=== PATIENT | female | born 1955 | race Caucasian/White ===

== ENCOUNTER 2022-02-02 13:32 | Observation (INO) ==
[2022-02-02] MEDS ORDERED: Ondansetron 4 MG/2 ML VIAL IVP PRN (15:05)
[2022-02-02] MEDS ORDERED: Acetaminophen 325 MG TABLET PO PRN (15:05)
[2022-02-02] MEDS ORDERED: Naloxone 0.4 MG/ML INJ IVP PRN (15:05)
[2022-02-02] MEDS ORDERED: Melatonin 3 MG TABLET PO PRN (15:05)
[2022-02-02] MEDS ORDERED: Perflutren Lipid Microsphere 1.3 ML in 0.9 % Sodium Chloride 8.7 ML IVP PRN ×2 (15:07→17:31)
[2022-02-02 15:31] LABS: Hematocrit 35.9 % (35.3-44.9); Hemoglobin 10.6 g/dL (11.5-15.4); Mean Corpuscular HGB Conc 29.5 g/dL (31.6-35.5); Mean Corpuscular Volume 71.2 fL (83.0-100.0); Mean Platelet Volume 10.1 fL (9.4-12.4); Platelet Count 370 K/mcL (140-400); Red Blood Count 5.04 M/mcL (3.82-4.97); Red Cell Distribution Width 17.6 % (11.5-14.5); White Blood Count 5.9 K/mcL (4.3-11.1)
[2022-02-02 15:45] LABS: BUN/Creatinine Ratio 27 (6-26); Blood Urea Nitrogen 16 mg/dL (8-23); Calcium 9.1 mg/dL (8.6-10.3); Carbon Dioxide 25 mEq/L (23-29); Chloride 101 mEq/L (98-107); Glucose 107 mg/dL (70-105); Osmolality,Calculated 286 (280-300); Potassium 3.5 mEq/L (3.5-5.1); Sodium 137 mEq/L (136-145); eGFR For African Americans > 60 (> 60); eGFR For Non-African Americans > 60 (> 60)
[2022-02-02] MEDS ORDERED: Ipratropium/Albuterol Neb 3 ML IH SCH (16:00)
[2022-02-02] MEDS ORDERED: *HR* HYDROcodone/Acet 5/325 mg TABLET PO PRN (16:07)
[2022-02-02] MEDS ORDERED: Ondansetron ODT 4 MG TAB.RAPDIS PO PRN (16:07)
[2022-02-02] MEDS ORDERED: Nitroglycerin 0.4 MG TAB.SUBL SL PRN (16:08)
[2022-02-02] MEDS ORDERED: Ipratropium/Albuterol Neb 3 ML IH PRN (16:19)
[2022-02-02] MEDS ORDERED: MethylPREDNISolone 40 MG/ML VIAL IVP SCH (18:00)
[2022-02-02] MEDS: Famotidine 20 MG TABLET PO SCH (22:33)
[2022-02-03] MEDS: MethylPREDNISolone 40 MG/ML VIAL IVP SCH ×3 (00:23→16:47)
[2022-02-03 05:05] LABS: Hemoglobin 9.9 g/dL (11.5-15.4); Mean Corpuscular Volume 70.1 fL (83.0-100.0); Mean Platelet Volume 10.7 fL (9.4-12.4); Platelet Count 359 K/mcL (140-400); Red Blood Count 4.71 M/mcL (3.82-4.97); Red Cell Distribution Width 17.2 % (11.5-14.5); White Blood Count 4.2 K/mcL (4.3-11.1)
[2022-02-03] MEDS: *HR* Enoxaparin 40 MG/0.4 ML SYRINGE SQ SCH (05:32)
[2022-02-03 09:07] LABS: Alanine Aminotransferase 193 Units/L (7-52); Albumin 3.4 g/dL (3.5-5.7); Albumin/Globulin Ratio 1.3 (1.1-2.2); Alkaline Phosphatase 124 Units/L (34-104); Aspartate Amino Transferase 136 Units/L (13-39); BUN/Creatinine Ratio 41 (6-26); Bilirubin,Total 1.1 mg/dL (0.3-1.0); Blood Urea Nitrogen 25 mg/dL (8-23); Calcium 8.5 mg/dL (8.6-10.3); Carbon Dioxide 25 mEq/L (23-29); Chloride 104 mEq/L (98-107); Chol/HDL Ratio 2.4 (0-4.9); Cholesterol 104 mg/dL (< 200); Globulin 2.7 g/dL (2.4-3.5); Glucose 109 mg/dL (70-105); HDL Cholesterol 43 mg/dL (40-59); LDL Cholesterol,Calculated 49 mg/dL (< 100); Magnesium 1.7 mg/dL (1.6-2.6); Osmolality,Calculated 293 (280-300); Potassium 3.4 mEq/L (3.5-5.1); Sodium 139 mEq/L (136-145); Total Protein 6.1 g/dL (6.4-8.9); Triglycerides 58 mg/dL (< 150); eGFR For African Americans > 60 (> 60); eGFR For Non-African Americans > 60 (> 60)
[2022-02-03] MEDS: Loratadine 10 MG TABLET PO SCH (10:42)
[2022-02-03] MEDS: Aspirin Enteric Coated 81 MG Tablet PO SCH (10:42)
[2022-02-03] MEDS: Cholecalciferol (D-3) 1,000 UNIT (25MCG) TABLET PO SCH (10:42)
[2022-02-03] MEDS: Ascorbic Acid 500 MG TABLET PO SCH (10:42)
[2022-02-03] MEDS: Furosemide 20 MG TABLET PO SCH (16:47)
[2022-02-03] MEDS: Famotidine 20 MG TABLET PO SCH (20:37)
[2022-02-04] MEDS: MethylPREDNISolone 40 MG/ML VIAL IVP SCH ×2 (01:52→08:28)
[2022-02-04 04:24] VITALS: O2SAT 98
[2022-02-04] MEDS: *HR* Enoxaparin 40 MG/0.4 ML SYRINGE SQ SCH (05:28)
[2022-02-04 07:33] VITALS: BP 117/77; PULSE 77; RESP 17; TEMP 98.3
[2022-02-04] MEDS: Ascorbic Acid 500 MG TABLET PO SCH (08:28)
[2022-02-04] MEDS: Loratadine 10 MG TABLET PO SCH (08:28)
[2022-02-04] MEDS: Cholecalciferol (D-3) 1,000 UNIT (25MCG) TABLET PO SCH (08:28)
[2022-02-04] MEDS: Aspirin Enteric Coated 81 MG Tablet PO SCH (08:28)
[2022-02-04] MEDS: Furosemide 20 MG TABLET PO SCH (08:28)
== END 2022-02-04 11:02 | disposition home or self-care (01) ==
LOC: INPGRE
PROVIDERS: ADMIT Family Medicine; ATTEND Family Medicine